=== PATIENT | female | born 1990 | race Caucasian/White ===

== ENCOUNTER 2019-06-09 07:31 | Inpatient (IN) ==
[2019-06-09] MEDS ORDERED: *HR* Nalbuphine 10 MG/ML AMPUL IVP PRN (08:09)
[2019-06-09] MEDS ORDERED: Famotidine 20 MG/2 ML VIAL IVP PRN (08:09)
[2019-06-09] MEDS ORDERED: Ondansetron 4 MG/2 ML VIAL IVP PRN (08:09)
[2019-06-09] MEDS ORDERED: Lidocaine 1% 20 ML MDV INFILT PRN (08:09)
[2019-06-09] MEDS ORDERED: Naloxone 0.4 MG/ML INJ IVP PRN (08:09)
[2019-06-09] MEDS ORDERED: Metoclopramide 10 MG/2 ML VIAL IVP PRN (08:09)
[2019-06-09] MEDS ORDERED: Penicillin G Potassium 5,000,000 UNIT in 0.9 % Sodium Chloride Mini Bag 100 ML IVPB ONE (08:11)
[2019-06-09] MEDS ORDERED: Ringers Solution, Lactated 1,000 ML IVC SCH (08:15)
[2019-06-09 08:45] LABS: Basophils % 0.2 %; Eosinophils % 0.2 %; Hematocrit 35.7 % (35.3-44.9); Hemoglobin 12.7 g/dL (11.5-15.4); Immature Granulocytes % 0.4 % (0-4); Lymphocytes # 1.2 K/mcL (0.6-4.6); Lymphocytes % 12.7 %; Mean Corpuscular HGB Conc 35.6 g/dL (31.6-35.5); Mean Corpuscular Hemoglobin 30.8 pg (28.0-33.3); Mean Corpuscular Volume 86.7 fL (83.0-100.0); Mean Platelet Volume 10.6 fL (9.4-12.4); Monocytes # 0.6 K/mcL (0.0-1.3); Monocytes % 6.2 %; Neutrophils # 7.3 K/mcL (1.6-8.9); Platelet Count 222 K/mcL (140-400); Red Blood Count 4.12 M/mcL (3.82-4.97); Red Cell Distribution Width 12.8 % (11.5-14.5); Segmented Neutrophils % 80.3 %; White Blood Count 9.1 K/mcL (4.3-11.1)
[2019-06-09] MEDS ORDERED: *HR* FentaNYL (PF) 100 MCG/2 ML VIAL ONE (08:55)
[2019-06-09 08:56] LABS: Amphetamine Screen,Urine Negative ng/mL (Cutoff=1000); Barbiturate Screen,Urine Negative ng/mL (Cutoff=200); Benzodiazepines Screen,Urine Negative ng/mL (Cutoff=200); Cannabinoid Screen,Urine Negative ng/mL (Cutoff = 50); Cocaine Screen,Urine Negative ng/mL (Cutoff= 300); Opiate Screen,Urine Negative ng/mL (Cutoff=300); Phencyclidine Screen,Urine Negative ng/mL (Cutoff=25)
[2019-06-09] MEDS ORDERED: *HR* Phenylephrine 10 MG/ML VIAL ONE (08:56)
[2019-06-09] MEDS ORDERED: Bupivacaine-MPF 0.25% 10 ML VIAL ONE (08:56)
[2019-06-09] MEDS ORDERED: Epidural Premix (fent/bupiv) 110 ML EP ONE (09:00)
[2019-06-09] MEDS ORDERED: Epidural Premix (fent/bupiv) 110 ML EP SCH (11:00)
[2019-06-09] MEDS ORDERED: Oxytocin 20 units/ LR 1000 mL 20 UNIT/1,000 ML BAG IVC SCH ×2 (11:45→17:51)
[2019-06-09] MEDS ORDERED: Penicillin G Potassium 2,500,000 UNIT in 0.9 % Sodium Chloride 100 ML IVPB SCH (12:00)
[2019-06-09] MEDS ORDERED: Benzocaine/Menthol 56 GM AEROSOL SPRAY TP PRN (17:51)
[2019-06-09] MEDS ORDERED: Acetaminophen 325 MG TABLET PO PRN (17:51)
[2019-06-09] MEDS ORDERED: Lanolin 7 G OINT...G. TP PRN (17:51)
[2019-06-09] MEDS ORDERED: Ibuprofen 600 MG TABLET PO PRN (17:51)
[2019-06-09 19:28] LABS: Basophils % 0.1 %; Hematocrit 34.5 % (35.3-44.9); Hemoglobin 12.1 g/dL (11.5-15.4); Immature Granulocytes % 0.4 % (0-4); Lymphocytes # 1.2 K/mcL (0.6-4.6); Lymphocytes % 10.6 %; Mean Corpuscular HGB Conc 35.1 g/dL (31.6-35.5); Mean Corpuscular Hemoglobin 30.7 pg (28.0-33.3); Mean Corpuscular Volume 87.6 fL (83.0-100.0); Mean Platelet Volume 10.5 fL (9.4-12.4); Monocytes # 0.7 K/mcL (0.0-1.3); Neutrophils # 9.2 K/mcL (1.6-8.9); Platelet Count 203 K/mcL (140-400); Red Blood Count 3.94 M/mcL (3.82-4.97); Red Cell Distribution Width 12.6 % (11.5-14.5); Segmented Neutrophils % 82.9 %; White Blood Count 11.1 K/mcL (4.3-11.1)
[2019-06-09 19:54] LABS: Alanine Aminotransferase 14 Units/L (7-52); Aspartate Amino Transferase 26 Units/L (13-39); BUN/Creatinine Ratio 14 (6-26); Blood Urea Nitrogen 8 mg/dL (6-20); Lactate Dehydrogenase 189 Units/L (140-271); Uric Acid 5.6 mg/dL (2.3-7.6); eGFR For African Americans > 60 (> 60); eGFR For Non-African Americans > 60 (> 60)
[2019-06-10] MEDS: Prenatal Vit/FA 1 EACH TABLET PO SCH (08:29)
[2019-06-11 08:02] VITALS: BP 110/69
[2019-06-11] MEDS: Prenatal Vit/FA 1 EACH TABLET PO SCH (08:27)
== END 2019-06-11 10:50 | disposition home or self-care (01) | DRG 807 ==
LOC: 1NENULAB → OBSVTOIN 07:31 → 1NENUOBS 20:27
PROVIDERS: ADMIT Advanced Practice Midwife; ATTEND Advanced Practice Midwife